=== PATIENT | female | born 1935 | race Caucasian/White ===

== ENCOUNTER 2016-08-03 11:54 | Inpatient (IN) | payer OTHER, MEDICARE ==
[~2016-08-03] VITALS: Ht 162.6 cm; Wt 48.1 kg
[2016-08-03 12:00] VITALS: BP_SYST 137
--- NOTE | 2016-08-03 12:00 | NUR ---
Patient to ER bed 08 to gown for evaluation. Side rails up. Report given to Luly.
--- NOTE | 2016-08-03 12:02 | NUR ---
ER at bedside examining patient.
--- NOTE | 2016-08-03 12:15 | NUR ---
Phleb at bedside for blood draw
[2016-08-03] MEDS ORDERED: PRO40 PO (12:16)
[2016-08-03] MEDS ORDERED: CLOP75TA2 PO (12:16)
[2016-08-03] MEDS ORDERED: POTA-118 PO (12:16)
[2016-08-03] MEDS ORDERED: SERT-131 PO (12:16)
[2016-08-03] MEDS ORDERED: TRAZ300T2 PO (12:16)
[2016-08-03] MEDS ORDERED: MESA0.37 PO (12:16)
[2016-08-03] MEDS ORDERED: FERR-57 PO (12:16)
[2016-08-03] MEDS ORDERED: HYDR-3698 PO (12:16)
[2016-08-03] MEDS ORDERED: SIMV20TA6 PO (12:16)
[2016-08-03] MEDS ORDERED: PRED5TAB PO (12:16)
[2016-08-03] MEDS ORDERED: MEMA28CA PO (12:16)
--- NOTE | 2016-08-03 12:16 | NUR ---
Medication reconciliation completed with information provided by paperwork from [facility] and [facility]. Any prior medication reconciliation on file was reviewed and corrected.
--- NOTE | 2016-08-03 12:28 | NUR ---
Pt lives at [facility]. Brought in by system manager.
--- NOTE | 2016-08-03 12:36 | NUR ---
Patient alert, awake, orientedx2 names and birthdate. cc of difficulty of swallowing and bump ( hard) left side neck. vital sign stable, afebrile. informed caregiver/opticianry teacher of board and care about POC. pt no s/s of distress. mouth is dry and crusty.mouth care done.
[2016-08-03 12:44] LABS: BASOPHILS # (AUTO) 0.1 K/uL (0.0-0.2); BASOPHILS % (AUTO) 0.2 % (0.0-2.0); EOSINOPHILS % (AUTO) 0.1 % (0.0-4.0); HEMATOCRIT 31.5 % (36-48); HEMOGLOBIN 10.3 g/dL (12.0-16.0); LYMPHOCYTES # (AUTO) 0.9 K/uL (1.0-5.5); LYMPHOCYTES % (AUTO) 2.5 % (20.5-51.5); MEAN CORPUSCULAR HEMOGLOBIN 30 pg (27-31); MEAN CORPUSCULAR HGB CONC 33 % (32-36); MEAN CORPUSCULAR VOLUME 92 fL (79.0-98.0); MONOCYTES # (AUTO) 1.1 K/uL (0.0-1.0); MONOCYTES % (AUTO) 2.9 % (1.7-9.3); NEUTROPHILS % (AUTO) 94.3 % (40.0-70.0); PLATELET COUNT (AUTO) 380 K/uL (130-430); RED BLOOD CELL COUNT(AUTO) 3.42 MIL/uL (4.2-6.2); RED CELL DISTRIBUTION WIDTH 13.2 % (9.0-15.0)
[2016-08-03 12:47] LABS: WHITE BLOOD COUNT (AUTO) 37.1 K/uL (4.8-10.8)
[2016-08-03 12:49] LABS: ANION GAP 7 (5-15); CALCIUM 10.2 mg/dL (8.4-11.0); CHLORIDE 111 mmol/L (98-107); CREATININE 0.99 mg/dL (0.55-1.30); GLUCOSE 147 mg/dL (70-99); POTASSIUM 3.8 mmol/L (3.5-5.1); SODIUM SERUM 144 mmol/L (136-145); UREA NITROGEN, BLOOD 25 mg/dL (8-21)
[2016-08-03 12:53] LABS: PROTHROMBIN TIME 11.1 SECS (9.5-12.5)
[2016-08-03 12:54] LABS: ALANINE AMINOTRANSFERASE 15 U/L (12-78); ALBUMIN 2.3 g/dL (3.4-4.8); ASPARTATE AMINOTRANSFERASE 16 U/L (10-37); CREATINE KINASE, TOTAL 90 U/L (26-192); TOTAL BILIRUBIN 0.4 mg/dL (0.0-1.0); TOTAL PROTEIN, SERUM 7.1 g/dL (6.4-8.3)
[2016-08-03] MEDS ORDERED: IOHEXOL 0 ML IV ONE (13:16)
[2016-08-03] MEDS ORDERED: CLINDAMYCIN 600 MG in D5W 50 ML IV ONE (14:15)
[2016-08-03] MEDS ORDERED: cefTRIAXone 1 GM IVPB PREMIX 50 ML IV ONE (14:15)
--- NOTE | 2016-08-03 14:23 | NUR ---
IVPB infusing to rt FA with no s/sx of infiltration at this time. roller staker at bedside.
--- NOTE | 2016-08-03 14:24 | NUR ---
Al from Ultrasound at bedside
--- NOTE | 2016-08-03 15:15 | NUR ---
Admit order to med/ surg status.transferred pt to room 135. bedside report given to BRENDA CRAFT. patient stable condition. belongings check and signed by Phil Williamson ( still [facility] all belongings sent with patient.
--- NOTE | 2016-08-03 15:19 | NUR ---
ADMISSION: The patient, YOSEPH APPIAH, 80 y/o, F admitted by MORENO FORBES DO, was given written information regarding hospital policies, unit procedures and contact lens fitter.
[2016-08-03 15:29] VITALS: BP_SYST 115
[2016-08-03] MEDS ORDERED: ONDANSETRON HCL 4 MG/2 ML VIAL IVP PRN (15:45)
[2016-08-03] MEDS ORDERED: LORazepam 2 MG/ML VIAL IVP PRN (15:45)
[2016-08-03] MEDS ORDERED: MAGNESIUM SULFATE 50 ML IV PRN (15:45)
[2016-08-03] MEDS ORDERED: DOCUSATE SODIUM 100 MG CAPSULE PO PRN (15:45)
[2016-08-03] MEDS ORDERED: POTASSIUM CHLORIDE 10 MEQ TAB.PRT.SR PO PRN (15:45)
[2016-08-03] MEDS ORDERED: ZOLPIDEM TARTRATE 5 MG TABLET PO PRN (15:45)
[2016-08-03] MEDS ORDERED: ACETAMINOPHEN 325 MG TABLET PO PRN (15:45)
[2016-08-03] MEDS ORDERED: MORPHINE 2 MG/ML INJ. SYRINGE IVP PRN (15:45)
--- NOTE | 2016-08-03 15:46 | NUR ---
SURGICAL CONSULT Spoke with Veronica regarding request for consultation with Dr. Robertson ([phone]) for reason: submandibular mass.
[2016-08-03 16:00] VITALS: BP_SYST 115
--- NOTE | 2016-08-03 16:00 | NUR ---
Rounds Patient is awake however, is confused. Bed is close to the nurses station and bed alarm is in place. IV is on the RFA 20g running NS@70ml/hr. Sepsis protocol will be initiated, WBC is 37.1. Large mass over neck noted. Will follow up with surgical consult with Dr. Robertson. Will continue to monitor.
[2016-08-03] MEDS: NACL 0.9% 1,000 ML IV SCH (16:31)
[2016-08-03] MEDS: VANCOMYCIN HCL 750 MG/NS 250 ML IV SCH (17:47)
--- NOTE | 2016-08-03 18:50 | NUR ---
Closing Note Patient is currently resting in bed. Spoke with Dr. Robertson order for MRI of neck was obtained. Blood culture and lactic acid levels were drawn. Patient is currently running Vancomycin IVP. Will give report to the oncoming nurse.
[2016-08-03 20:30] VITALS: BP_SYST 123
--- NOTE | 2016-08-03 20:31 | NUR ---
Initial note A/O x 1, no SOB, no chest pain, no pain, mild anxious. Skin warm to touch, IV at R FA, patent. IVF ongoing. Redness and swelling on neck noted. Wound at coccyx and R hip note. L hand/arm contracted/stiff. Clear lung sounds, active bowel sounds. Like to cover her eyes/face with blanket. Call light within reach, bed at lowest position, bed alarm on, will continue to monitor patient.
[2016-08-03] MEDS: SIMVASTATIN 20 MG TABLET PO SCH (22:02)
[2016-08-03] MEDS: traZODone HCL 50 MG TABLET (DESYREL) PO SCH (22:10)
--- NOTE | 2016-08-03 22:15 | NUR ---
Rounds Sleeping in bed, arousable, medications given with apple sauce. No aspiration. No SOB, no chest pain, denied pain. IVF ongoing. Redness and swelling on neck noted. Call light within reach, bed at lowest position, bed alarm on, will continue to monitor patient.
[2016-08-03 23:54] VITALS: BP_SYST 100
--- NOTE | 2016-08-04 00:10 | NUR ---
Rounds Sleeping in bed. No SOB, no chest pain, denied pain. IVF ongoing. Call light within reach, bed at lowest position, bed alarm on, will continue to monitor patient.
--- NOTE | 2016-08-04 02:11 | NUR ---
Rounds Sleeping in bed. No SOB, no chest pain, no grimacing. IVF ongoing. Call light within reach, bed at lowest position, bed alarm on, will continue to monitor patient.
[2016-08-04 04:04] VITALS: BP_SYST 100
--- NOTE | 2016-08-04 04:15 | NUR ---
Rounds Sleeping in bed. No SOB, no chest pain, no grimacing. Call light within reach, bed at lowest position, bed alarm on, will continue to monitor patient.
[2016-08-04] MEDS: NACL 0.9% 1,000 ML IV SCH (06:39)
--- NOTE | 2016-08-04 06:54 | NUR ---
Closing note Awake in bed, talking to herself. No SOB, no chest pain, denied pain. Call light within reach, bed at lowest position, bed alarm on, will give report to incoming nurse.
[2016-08-04 07:04] LABS: HEMATOCRIT 28.5 % (36-48); HEMOGLOBIN 9.4 g/dL (12.0-16.0); MEAN CORPUSCULAR HEMOGLOBIN 30 pg (27-31); MEAN CORPUSCULAR HGB CONC 33 % (32-36); MEAN CORPUSCULAR VOLUME 92 fL (79.0-98.0); PLATELET COUNT (AUTO) 336 K/uL (130-430); RED BLOOD CELL COUNT(AUTO) 3.12 MIL/uL (4.2-6.2); RED CELL DISTRIBUTION WIDTH 13.2 % (9.0-15.0); WHITE BLOOD COUNT (AUTO) 26.5 K/uL (4.8-10.8)
[2016-08-04 07:15] LABS: ANION GAP 6 (5-15); CALCIUM 9.6 mg/dL (8.4-11.0); CHLORIDE 116 mmol/L (98-107); CREATININE 0.69 mg/dL (0.55-1.30); GLUCOSE 98 mg/dL (70-99); POTASSIUM 3.8 mmol/L (3.5-5.1); SODIUM SERUM 147 mmol/L (136-145); UREA NITROGEN, BLOOD 21 mg/dL (8-21)
--- NOTE | 2016-08-04 07:34 | NUR ---
Opening Note Report received form Rob CRAFT. Patient is in stable condition and is currently awake, resting in bed. IV is on the RFA 20g running NS@70ml/hr. No signs of distress noted. Will continue to monitor.
[2016-08-04 07:49] LABS: BAND % (MANUAL) 0 % (0-6); BASOPHILS % (MANUAL) 0 % (0-2); EOSINOPHILS % (MANUAL) 0 % (0-7); LYMPHOCYTES % (MANUAL) 6 % (20-46); MONOCYTES % (MANUAL) 2 % (0-11)
[2016-08-04 08:05] VITALS: BP_SYST 139
[2016-08-04] MEDS ORDERED: MEMANTINE HCL 7 MG CAP.SPR.24 PO SCH (09:00)
[2016-08-04] MEDS ORDERED: CLOPIDOGREL BISULFATE 75 MG TABLET PO SCH (09:00)
[2016-08-04] MEDS ORDERED: MESALAMINE PO SCH (09:00)
[2016-08-04] MEDS ORDERED: 0.45% NS 500 ML IV ONE (09:00)
--- NOTE | 2016-08-04 09:35 | NUR ---
Spoke with MD Spoke with Dr. Silver and let the MD know of current Na level of 147. MD changed IV fluids to 1/2NS@70.
[2016-08-04] MEDS: SERTRALINE HCL 50 MG TABLET PO SCH (10:04)
[2016-08-04] MEDS: FERROUS SULFATE 325 MG TABLET.DR PO SCH (10:04)
[2016-08-04] MEDS: MEMANTINE HCL 5 MG TABLET PO SCH ×2 (10:04→20:48)
[2016-08-04] MEDS: HEPARIN SODIUM,PORCINE 5000 UNITS/ML VIAL SUBCUT SCH ×2 (10:07→20:49)
--- NOTE | 2016-08-04 10:50 | NUR ---
Rounds Patient is currently resting in bed. Family is at the bedside.
[2016-08-04] MEDS: 0.45% NACL 1,000 ML IV SCH (11:26)
[2016-08-04 12:00] VITALS: BP_SYST 119
--- NOTE | 2016-08-04 12:26 | NUR ---
S.T. SWALLOW EVAL COMPLETED. PT PRESENTS W/ ORAL SWALLOW FUNCTIONAL FOR PUREE AND THIN/THICK LIQUIDS. MOD PHARYNGEAL DYSPHAGIA W/ DELAYED SWALLOW AND COUGHING ON THIN LIQUIDS INDICATING RISK FOR ASPIRATION. REC: PUREE DIET W/ THICKENED LIQUIDS (NECTAR CONSISTENCY) NURSE BRENDA NOTIFIED. G8996 CK G8997 CK G8998 CK NOMS LEVEL 4
--- NOTE | 2016-08-04 12:30 | NUR ---
Rounds Patient is resting in bed. BP pressure is within range. Patient is afebrile. Family is at he bedside. Bed is in low position.
--- NOTE | 2016-08-04 12:40 | NUR ---
CM DC PLANNING: S/W DR. MILLAN IN A.M. WHO IS WANTING TO GET IN TOUCH WITH FAMILY MEMBER REGARDING POC RECOMMENDATIONS. S/W NURSE/BRENDA WHO STATED THERE ARE A LOT OF FAMILY MEMBERS WHO ARE REQUESTING INFORMATION ON TREATMENT/STATUS OF Pt. AND RN/BRENDA HAS ESTABLISHED THAT DTR/ROSA WILL BE THE PRIMARY FAMILY SPOKESPERSON.
--- NOTE | 2016-08-04 14:40 | NUR ---
Rounds Patient had a bowel movement. She was cleaned and wound care was done. Patient tolerated well.
[2016-08-04] MEDS ORDERED: NS IRRIG SOLN 1000 ML IR ONE (15:11)
[2016-08-04] MEDS ORDERED: MIDAZOLAM HCL 5 MG/5 ML VIAL IVP ONE (15:11)
[2016-08-04] MEDS ORDERED: PROPOFOL 200MG/ 20ML VIAL (DIPRIVAN) IV ONE (15:11)
[2016-08-04] MEDS ORDERED: MEPERIDINE HCL/PF 50 MG/ML AMP IM ONE (15:11)
[2016-08-04] MEDS ORDERED: LIDOCAINE/EPI 1% 1:100000 20 ML VIAL INJ ONE (15:11)
[2016-08-04] MEDS ORDERED: LR 1,000 ML IV.SOLN IV ONE (15:11)
[2016-08-04 16:00] VITALS: BP_SYST 101
--- NOTE | 2016-08-04 16:35 | NUR ---
Rounds Patient's daughter Luz is at the bedside and spoke with Dr. Robertson. wants to do an incision and drainage of the neck. Luz stated that all her questions were answered and she signed the consent.
[2016-08-04] MEDS: VANCOMYCIN HCL 750 MG/NS 250 ML IV SCH (17:29)
--- NOTE | 2016-08-04 18:40 | NUR ---
Closing Note Patient is in stable condition. Blood pressure has been within range and has been afebrile throughout the shift. No signs of distress noted. IV is on the RFA running 1/2NS@70 ml/hr. Will give report to the oncoming shift.
[2016-08-04 20:33] VITALS: BP_SYST 93
--- NOTE | 2016-08-04 20:41 | NUR ---
Initial note A/O x 1, no SOB, no chest pain, denied pain. Skin warm to touch, IV at R FA. Wounds at coccyx, and back noted. Some discoloration at R hip and R heel. No edema noted. +2 radial and pedal pulses. L hand/arm contracted. Patient is somehow anxious, but no SOB. Call light within reach, bed at lowest position, bed alarm on, will continue to monitor patient.
[2016-08-04] MEDS: traZODone HCL 50 MG TABLET (DESYREL) PO SCH (20:48)
[2016-08-04] MEDS: SIMVASTATIN 20 MG TABLET PO SCH (20:48)
--- NOTE | 2016-08-04 22:04 | NUR ---
Rounds Patient sleeping now, no SOB, no chest pain, no grimacing. Bed at lowest position, bed alarm on, IVF ongoing. Call light within reach, will continue to monitor patient.
--- NOTE | 2016-08-04 23:47 | NUR ---
Paged Dr. Robertson for orders Spoke with Arminda.
--- NOTE | 2016-08-04 23:56 | NUR ---
TELEPHONE CONSENT OBTAINED MRI checklist reviewed and telephone consent obtained for MRI from pt.'s daughter, Meme Alfaro ([phone]) who denies any questions or concerns about procedure. Telephone consent witnessed with primary nurse, VENANCIO Rivas.
[2016-08-05] VITALS (10 sets, daily range): BP systolic 110–146
--- NOTE | 2016-08-05 00:04 | NUR ---
Rounds Sleeping in bed. No SOB, no chest pain, no grimacing. Repositioned patient. Bed at lowest position, bed alarm on, IVF ongoing. Call light within reach, will continue to monitor patient.
--- NOTE | 2016-08-05 00:30 | NUR ---
Received order from Dr. Robertson for UA via in-and-out cath.
[2016-08-05] MEDS: 0.45% NACL 1,000 ML IV SCH ×2 (01:09→14:51)
--- NOTE | 2016-08-05 01:46 | NUR ---
URINE SENT TO LAB Pt.'s urine sample sent to lab for UA.
[2016-08-05 02:00] LABS: BILIRUBIN,URINE NEGATIVE (NEGATIVE); BLOOD, URINE NEGATIVE (NEGATIVE); CLARITY/URINE CLOUDY (CLEAR); COLOR,URINE YELLOW (YELLOW); GLUCOSE,URINE NEGATIVE (NEGATIVE); KETONES,URINE NEGATIVE (NEGATIVE); LEUKOCYTE ESTERASE ,URINE 1+ (NEGATIVE); NITRITE, URINE NEGATIVE (NEGATIVE); PH,URINE 5.5 (5.0-8.0); PROTEIN URINE NEGATIVE (NEGATIVE); UROBILINOGEN,URINE 0.2 (0.2-1.0)
[2016-08-05 02:04] LABS: BACTERIA,URINE MODERATE /HPF (None Seen); MUCUS,URINE None Seen /LPF (None Seen); RBC,URINE 0-3 /HPF (0-3); URINE AMORPHOUS URATE 2+ /HPF (None Seen); WBC,URINE 50-80 /HPF (0-3)
--- NOTE | 2016-08-05 02:24 | NUR ---
Rounds Sleeping in bed. No SOB, no chest pain, no grimacing. Bed at lowest position, bed alarm on, IVF ongoing. Call light within reach, will continue to monitor patient.
--- NOTE | 2016-08-05 04:08 | NUR ---
Rounds Sleeping in bed. No SOB, no chest pain, no grimacing. Skin warm to touch, repositioned patient Q2H. Bed at lowest position, bed alarm on, call light within reach, will continue to monitor patient.
[2016-08-05 06:42] LABS: EOSINOPHILS # (AUTO) 0.2 K/uL (0.0-0.4)
[2016-08-05 07:01] LABS: HEMOGLOBIN 8.4 g/dL (12.0-16.0)
[2016-08-05 07:03] LABS: ANION GAP 5 (5-15); CALCIUM 9.1 mg/dL (8.4-11.0); CHLORIDE 112 mmol/L (98-107); CREATININE 0.63 mg/dL (0.55-1.30); GLUCOSE 103 mg/dL (70-99); POTASSIUM 3.3 mmol/L (3.5-5.1); SODIUM SERUM 143 mmol/L (136-145); UREA NITROGEN, BLOOD 15 mg/dL (8-21)
[2016-08-05 07:11] LABS: BASOPHILS % (AUTO) 0.2 % (0.0-2.0); EOSINOPHILS % (AUTO) 1.2 % (0.0-4.0); HEMATOCRIT 26.4 % (36-48); LYMPHOCYTES # (AUTO) 1.3 K/uL (1.0-5.5); LYMPHOCYTES % (AUTO) 6.8 % (20.5-51.5); MEAN CORPUSCULAR HEMOGLOBIN 30 pg (27-31); MEAN CORPUSCULAR HGB CONC 32 % (32-36); MEAN CORPUSCULAR VOLUME 93 fL (79.0-98.0); MONOCYTES # (AUTO) 0.6 K/uL (0.0-1.0); MONOCYTES % (AUTO) 2.9 % (1.7-9.3); NEUTROPHILS # (AUTO) 17.7 K/uL (1.8-7.7); NEUTROPHILS % (AUTO) 88.9 % (40.0-70.0); PLATELET COUNT (AUTO) 326 K/uL (130-430); RED BLOOD CELL COUNT(AUTO) 2.85 MIL/uL (4.2-6.2); RED CELL DISTRIBUTION WIDTH 13.3 % (9.0-15.0); WHITE BLOOD COUNT (AUTO) 19.8 K/uL (4.8-10.8)
--- NOTE | 2016-08-05 07:22 | NUR ---
OPENING NOTE REPORT RECEIVED FROM NOC RN. PATIENT IS AWAKE, CONFUSED. LYING IN BED HOLDING A BLANKET TO HER RIGHT CHEEK. SWELLING SUBMANDIBULAR TO LEFT OF FACE AND NECK NOTED. PATIENT UNABLE TO STATE IF SHE IS IN PAIN OR HER NEEDS DUE TO CONFUSION. PATIENT JUST REPEATS THAT SHE WANTS TO GO HOME.
--- NOTE | 2016-08-05 07:38 | NUR ---
Closing note Awake in bed. No SOB, no chest pain, no grimacing. Patient's talking to herself repeatedly. Bed at lowest position, bed alarm on, call light within reach, report given to incoming nurse.
--- NOTE | 2016-08-05 07:55 | NUR ---
Nutrition Update Chuck Scale 10 noted. Pt admitted for Sepsis, Submandibular mass. Diet: Regular diet. BMI: 18.2 kg/m2 RD to follow per nutrition care standards.
--- NOTE | 2016-08-05 09:40 | NUR ---
PATIENT MEDICATED PER ORDERS. DAUGHTERS AT BEDSIDE. PER DAUGHTERS IF PATIENT HAS A CARCINOMA OR CANCER OF ANY KIND THEY ARE NOT GOING TO SEEK TREATMENT. THEY ALSO STATE PATIENT HAS A SIGNED DNR THAT THEY ARE BRINGING TO THE HOSPITAL TODAY. PT SCHEDULED FOR MRI THIS AFTERNOON
[2016-08-05] MEDS: SERTRALINE HCL 50 MG TABLET PO SCH (09:56)
[2016-08-05] MEDS: MEMANTINE HCL 5 MG TABLET PO SCH ×2 (09:56→21:00)
[2016-08-05] MEDS: FERROUS SULFATE 325 MG TABLET.DR PO SCH (09:58)
[2016-08-05] MEDS: HEPARIN SODIUM,PORCINE 5000 UNITS/ML VIAL SUBCUT SCH ×2 (09:58→22:19)
--- NOTE | 2016-08-05 13:20 | NUR ---
MRI Patient for MRI. Ativan given prior to test. vitals taken and recorded.
--- NOTE | 2016-08-05 13:31 | NUR ---
PATIENT RETURNED FROM MRI VIA GURNEY. PER TECH MRI UNABLE TO BE PERFORMED DUE TO PATIENT MOVING TOO MUCH.
--- NOTE | 2016-08-05 14:35 | NUR ---
Wound Evaluation: Wound Consult ordered for Low Chuck Score. Patient evaluated for a low Chuck score of 10. Patient was awake, alert, oriented and received in a Aileen Bed with an IsoFlex FARDIA mattress with low air loss therapy initiated. Patient needs to be turned in bed. Skin is fair. Recommend reposition patient every 2 hours with pillow support. Elevate, off-load and float bilateral heels with pillows. Offload pressure areas with pillows for pressure re-distribution. Perform skin care and monitor skin integrity Q shift. Use moisture barrier cream on moisture susceptible areas QID and PRN for soiling. Maintain patient on a low air-loss mattress. Will continue to follow as a Chuck. Addendum: 08/07/16 at 1018 by Chavez Cortes RN Note written in error, please disregard.
--- NOTE | 2016-08-05 14:48 | NUR ---
PATIENT TAKEN TO OR FOR BIOPSY VIA GURNEY
--- NOTE | 2016-08-05 15:34 | NUR ---
DR FORBES PAGEMadhavi FOR PATIENT MRSA POSITIVE RESULTS
[2016-08-05] MEDS ORDERED: NACL 0.9% 1,000 ML IV SCH (15:36)
[2016-08-05] MEDS ORDERED: ONDANSETRON HCL 4 MG/2 ML VIAL IVP PRN (15:45)
[2016-08-05] MEDS ORDERED: HYDROmorphone 2 MG/ML VIAL IVP PRN (15:45)
[2016-08-05] MEDS ORDERED: HYDROmorphone 1 MG INJ. 1 MG/ML AMPUL IVP PRN (15:45)
--- NOTE | 2016-08-05 16:08 | NUR ---
DR FORBES ORDERED MUPROCIN NASAL FOR MRSA IN NARES.
--- NOTE | 2016-08-05 16:34 | NUR ---
PATIENT RETURNED FROM OR WITH TWO RN'S AT [facility]. REPORT RECEIVED AT BEDSIDE INITIAL FLOOR VITALS 111/64, 85, 965 ON ROOM AIR RR 16 0/10 PAIN. PATIENT IS EASILY AROUSABLE TO VOICE, PUPILS PERRL. FAMILY IS AT BEDSIDE
--- NOTE | 2016-08-05 16:43 | NUR ---
SPOKE WITH PATIENT'S DAUGHTER ABEBE REGARDING ADVANCED DIRECTIVE. INFORMED HER THAT IT IS NOT ACTUALLY A DNR, DAUGHTER THEN STATED THE FAMILY WOULD NOT WANT THEIR MOTHER INTUBATED, WOULD NOT WANT CPR AND WOULD NOT WANT MEDICATIONS GIVEN IN THE EVENT OF A CODE OR ARREST. EXPLAINED TO ABEBE THAT THIS WOULD NEED TO BE CONFIRMED WITH THE MD, DR FORBES AND SIGNED BY HIM TO BE IN EFFECT WHILE FAMILY IS NOT PHYSICALLY PRESENT. VERBALIZED UNDERSTANDING
--- NOTE | 2016-08-05 16:52 | NUR ---
DR FORBES PAGED PT SBP 71/42. RR 14. 96%RA, P 64 PUPILD PINPOINT. PATIENT IS UNAROUSABLE
[2016-08-05] MEDS ORDERED: NALOXONE HCL 0.4 MG/ML AMP (NARCAN) ONE (17:03)
--- NOTE | 2016-08-05 17:05 | NUR ---
PATIENT HAS STARTED TO WAKE TO NOXIOUS AND PAINFUL STIMULI. WHEN ASKED IF SHE'D LIKE TO SLEEP PATIENT NODDED "YES." PUPILS 3, REACTIVE. RR 16, ON 2LPM O2 PATIENT IS 100%
--- NOTE | 2016-08-05 17:06 | NUR ---
PER DR FORBES GIVE 0.4MG NARCAN, 1L BOLUS OF NS, REASSESS IF PATIENT DOES NOT WAKE UP SEND TO ICU. CONSULT DR OLIVEROS FOR CRITICAL CARE
[2016-08-05] MEDS: VANCOMYCIN HCL 750 MG/NS 250 ML IV SCH (17:33)
--- NOTE | 2016-08-05 17:34 | NUR ---
SBP 133/86 PATIENT REMAINS OBTUNDED AND DIFFICULT TO ROUSE. OPENS EYES TO PAINFUL STIMULI. RR STEADY, HR 65-74
--- NOTE | 2016-08-05 17:43 | NUR ---
PULM CONSULT CONSULT FOR Dr. Guzman was called, LONA Farrell RE Critical Care Patient
--- NOTE | 2016-08-05 17:49 | NUR ---
DR OLIVEROS RETURNED PAGE. STAT ABG AND FLUMAZENIL
[2016-08-05] MEDS ORDERED: FLUMAZENIL 0.1 MG/ML IVP ONE ×2 (18:00→18:05)
[2016-08-05 18:16] LABS: ABG TOTAL HEMOGLOBIN 8.4 G/dL (12.0-18.0); BLOOD GAS BASE EXCESS 2.5 mmol/L (-3.0-3.0); BLOOD GAS COHb% 0.6 % (0.5-1.5); BLOOD GAS PH 7.475 (7.350-7.450); BLOOD O2Hb% 97.6 % (94.0-97.0)
[2016-08-05 18:17] LABS: BLOOD GAS HHB 1.3 % (0.0-6.0)
[2016-08-05] MEDS ORDERED: NALOXONE HCL 0.4 MG/ML AMP (NARCAN) IVP ONE (18:30)
--- NOTE | 2016-08-05 18:39 | NUR ---
sbp 140's patient is mumbling incoherently, non responsive verbally. eyes open spontaneously. baseline is confused and disoriented but pleasant. patient is not at baseline yet. dr vo requests patient to icu for close monitoring. per family patient is dnr. confirmed with dr vo
--- NOTE | 2016-08-05 19:40 | NUR ---
INITIAL NOTE Patient resting on the bed with eyes closed. No acute distress. Respiration even and unlabored. OT=129/70 at this time. Skin warm and dry to touch. IV intact to RFA, no redness, no swelling, no drainage, IVF infusing well. On contact isolation for MRSA of nares. Family at bedside. Discussed the safety issue, use call light when need help, and plan of care, verbally understanding. Patient is going to transfer to ICU. Per family patient will be DNR and checked the chart, Dr. Silver already signed the paper. Safety measure maintained. Bed in low position, side rails up. Call light within reached. Will continue to monitor.
--- NOTE | 2016-08-05 20:55 | NUR ---
ROUND Patient remain unresponsive. No acute distress. Skin warm and dry to touch. Noted BP not stable, SBP dropped to 80s and up to 140s. Family at bedside. Safety measure maintained. Call light within reached. Bed in low position, side rails up. Will continue to monitor.
[2016-08-05] MEDS: SIMVASTATIN 20 MG TABLET PO SCH (21:00)
--- NOTE | 2016-08-05 22:00 | NUR ---
PATIENT TRANSFERRED TO ICU BED 5 Patient BP=82/36, P=44, still unresponsive at this time. Transferred to ICU bed 5, report given at bedside to VENANCIO Weir.
--- NOTE | 2016-08-05 22:00 | NUR ---
PM ASSESSMENT PT A/OX1, OBTUNDED, AFEBRILE. PT ON NC @2L, NO SOB OR DISTRESS, LUNG SOUNDS CLEAR BILAT. SB ON THE MONITOR. SACRAL, RT HIP, BACK, AND RT HEEL WOUNDS, DRESSINGS CLEAN DRY AND INTACT. NO C/O PAIN AT THIS TIME. IVF 1/2 NS@70ML/HR. IV SITE ON RT FA 20G, INTACT AND PATENT. SAFETY PRECAUTIONS IN PLACE, WILL CONTINUE TO MONITOR.
[2016-08-05] MEDS: MUPIROCIN 2% TOPICAL OINTMENT 22 GM TP SCH (22:15)
[2016-08-06] VITALS (16 sets, daily range): BP systolic 84–138
--- NOTE | 2016-08-06 01:00 | NUR ---
NEURO PT RESPONDS BACK TO QUESTIONS. REORIENTED TO SURROUNDINGS. WILL CONTINUE TO MONITOR.
[2016-08-06 06:31] LABS: BASOPHILS # (AUTO) 0.1 K/uL (0.0-0.2); BASOPHILS % (AUTO) 0.5 % (0.0-2.0); HEMATOCRIT 28.6 % (36-48); HEMOGLOBIN 9.2 g/dL (12.0-16.0); LYMPHOCYTES # (AUTO) 0.8 K/uL (1.0-5.5); LYMPHOCYTES % (AUTO) 5.4 % (20.5-51.5); MEAN CORPUSCULAR HEMOGLOBIN 30 pg (27-31); MEAN CORPUSCULAR HGB CONC 32 % (32-36); MEAN CORPUSCULAR VOLUME 92 fL (79.0-98.0); MONOCYTES # (AUTO) 0.4 K/uL (0.0-1.0); MONOCYTES % (AUTO) 2.9 % (1.7-9.3); NEUTROPHILS % (AUTO) 91.2 % (40.0-70.0); PLATELET COUNT (AUTO) 319 K/uL (130-430); RED BLOOD CELL COUNT(AUTO) 3.11 MIL/uL (4.2-6.2); RED CELL DISTRIBUTION WIDTH 13.3 % (9.0-15.0); WHITE BLOOD COUNT (AUTO) 15.3 K/uL (4.8-10.8)
[2016-08-06 06:58] LABS: ANION GAP 7 (5-15); CALCIUM 9.1 mg/dL (8.4-11.0); CHLORIDE 106 mmol/L (98-107); GLUCOSE 99 mg/dL (70-99); POTASSIUM 3.9 mmol/L (3.5-5.1); SODIUM SERUM 141 mmol/L (136-145); UREA NITROGEN, BLOOD 10 mg/dL (8-21)
--- NOTE | 2016-08-06 07:15 | NUR ---
RECEIVED PATIENT ON BED ASLEEP EASILY AROUSED BY VERBAL STIMULI.BREATHING EVEN AND UNLABORED.NO SIGNS AND SYMPTOMS OF ACUTE DISTRESS.IVF INFUSING WELL;NO SIGNS AND SYMPTOMS OF INFILTRATION.DRESSING TO LEFT SUBMANDIBULAR S/P I AND D DRY CLEAN AND INTACT;NO SIGNS AND SYMPTOMS OF ACTIVE BLEEDING.SAFETY AND FALL PRECAUTIONS IN PLACE.CALL LIGHT WITHIN REACH
--- NOTE | 2016-08-06 07:34 | NUR ---
CLOSING ALL NEEDS MET. ENDORSED CARE TO DAY NURSE VENANCIO VALENTIN. REPORT GIVEN AT BEDSIDE.
--- NOTE | 2016-08-06 08:00 | NUR ---
DR. MILLAN CAME AND EXAMINED THE PATIENT
--- NOTE | 2016-08-06 08:30 | NUR ---
PATIENT FULLY AWAKE;SERVED BREAKFAST;ABLE TO CONSUME 50%;TOLERATED FOOD WELL
--- NOTE | 2016-08-06 09:00 | NUR ---
PATIENT ASLEEP;BP DROPPED DOWN TO 84/48 BUT GOES UP WHEN AWAKE
[2016-08-06] MEDS: MEMANTINE HCL 5 MG TABLET PO SCH ×2 (09:02→21:19)
[2016-08-06] MEDS: FERROUS SULFATE 325 MG TABLET.DR PO SCH (09:02)
[2016-08-06] MEDS: MUPIROCIN 2% TOPICAL OINTMENT 22 GM TP SCH ×2 (09:02→21:19)
[2016-08-06] MEDS: SERTRALINE HCL 50 MG TABLET PO SCH (09:02)
[2016-08-06] MEDS: HEPARIN SODIUM,PORCINE 5000 UNITS/ML VIAL SUBCUT SCH ×2 (09:06→21:18)
--- NOTE | 2016-08-06 09:19 | NUR ---
DAUGHTERS CAME TO VISIT
--- NOTE | 2016-08-06 12:30 | NUR ---
LUNCH SERVED;FAMILY MEMBERS FED THE PATIENT;WITH POOR APPETITE
--- NOTE | 2016-08-06 13:30 | NUR ---
PATIENT TRANSFERRED TO [facility] 105 A ACCOMPANIED BY 2 DAUGHTERS AND SON .ALERT,AWAKE,CONFUSED.NO ACUTE DISTRESS.DRESSING TO LEFT SUB MANDIBULAR SURGICAL SITE INTACT;NO SIGNS AND SYMPTOMS OF ACTIVE BLEEDING.BEDSIDE REPORT GIVEN TO LILIAN (VENANCIO).
--- NOTE | 2016-08-06 13:49 | NUR ---
Received patient from ICU nurse, patient is stable, vital signs stable, patient's family members are at bedside, call chapman left next to patient's hand, bed in lowest position, bed alarm on, side rails up, close to nursing station, fall precaution in place, will continue to monitor
--- NOTE | 2016-08-06 14:00 | NUR ---
Patient keeps trying to pull off dressing on face, reorienting patient not to pull at dressing, patient is also pulling at wires to take off tele monitors, reoriented patient.
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
--- NOTE | 2016-08-06 15:45 | NUR ---
RN ROUNDS PATIENT IS CURRENTLY RESTING IN BED, FAMILY MEMBERS AT BEDSIDE, PATIENT SHOWS NO SIGNS OF DISTRESS, BREATHING IS EVEN AND UNLABORED, NO OTHER NEEDS AT THIS TIME, WILL CONTINUE TO MONITOR.
--- NOTE | 2016-08-06 16:13 | NUR ---
DISCHARGE PLANNING DC order for SNF placement. Called and spoke with patient daughter Meme Alfaro [phone] who is agreeable with discharge plan to SNF and is agreeable [facility] [place] [facility] that recommended. Faxed SNF referral to [facility] and [facility] [phone]. Will follow up. Addendum: 08/06/16 at 1651 by Ashlyn KENNEDY spoke with Kevin in admitting at [facility] patient accepted assigned to room 111A RN to report [phone], bed available in AM. Any ambulance can be arranged. Prepared transportation packet. DCP will follow up in AM.
--- NOTE | 2016-08-06 17:54 | NUR ---
RN ROUNDS PATIENT IS CURRENTLY RESTING IN BED, PATIENT'S FAMILY IS AT BEDSIDE FEEDING PATIENT, PATIENT HAS NO SIGNS OF DISTRESS OR DISCOMFORT, WILL CONTINUE TO MONITOR PATIENT, FALL AND ISOLATION PRECAUTIONS IN PLACE.
[2016-08-06] MEDS: VANCOMYCIN HCL 750 MG/NS 250 ML IV SCH (18:04)
[2016-08-06] MEDS: 0.45% NACL 1,000 ML IV SCH ×2 (18:05→19:27)
--- NOTE | 2016-08-06 18:37 | NUR ---
CLOSING NOTE PATIENT IS CURRENTLY RESTING IN BED, NO SIGNS OF DISTRESS NOTED, BREATHING IS EVEN AND UNLABORED, FAMILY MEMBERS ARE AT BEDSIDE, PATIENT IS IN STABLE CONDITION, ALL NEEDS MET, WILL ENDORSE PATIENT TO RF MANAGER NURSE, CALL MENDOZA LEFT NEXT TO PATIENT'S HAND, BED ALARM ON, SIDE RAILS UP, FALL PRECAUTION IN PLACE.
--- NOTE | 2016-08-06 19:30 | NUR ---
INITIAL NOTE Patient resting on the bed. Respiration even and unlabored. No acute distress. Skin warm and dry to touch. IV intact to RFA, no redness, no swelling, no drainage. On 1/2NS at 70ml/hr, infusing well. Right wrist soft restraint in placed. No skin breakdown note on the site at this time. Able to move fingers without difficulty. Dressing intact to left side of the neck, no bleeding noted. Safety measure maintained. Bed in low position, side rails up. Call light within reached. Will continue to monitor.
[2016-08-06] MEDS: SIMVASTATIN 20 MG TABLET PO SCH (21:19)
--- NOTE | 2016-08-06 21:20 | NUR ---
ROUND Patient resting on the bed. No acute distress. Right wrist soft restraint in placed and released 10 mins for circulation and skin checked. Safety measure maintained. Call light within reached. Bed in low position, side rails up. Continue to monitor.
--- NOTE | 2016-08-06 22:30 | NUR ---
IV RE-INSERTION: Noted infiltrated on the IV site. Removed IV with minimum bleeding, IV tip intact. Restarted on LFA. Successful after two attempts. Resumed current IVF of 1/2NS and regulated @ 70ml/hr. Will observe for any signs of infiltration.
[2016-08-07] VITALS: BP_SYST 128
--- NOTE | 2016-08-07 00:05 | NUR ---
ROUND Patient resting on the bed with eyes closed. Respiration even and unlabored. No acute distress. Right wrist soft restraint released, circulation checked. Continue on IVF, infusing well. Safety measure maintained. Call light within reached. Will continue to monitor.
--- NOTE | 2016-08-07 02:15 | NUR ---
ROUND Patient sleeping comfortable. Respiration even and unlabored. No acute distress. Right wrist soft restraint released, circulation checked. Continue on IVF, infusing well. Safety measure maintained. Call light within reached. Bed in low position, side rails up. Continue to monitor.
[2016-08-07 04:00] VITALS: BP_SYST 131
--- NOTE | 2016-08-07 06:57 | NUR ---
CLOSING NOTE Patient resting on the bed. Respiration even and unlabored. No acute distress. Skin warm and dry to touch. IV intact to RFA, no redness, no swelling, no drainage. On 1/2NS at 70ml/hr, infusing well. Right wrist soft restraint in placed. No skin breakdown note on the site at this time. Able to move fingers without difficulty. Released Q2hrs for circulation and skin checked. Dressing intact to left side of the neck, no bleeding noted. All needs met. Hourly rounding during shift. Safety measure maintained. Bed in low position, side rails up. Call light within reached. Will endorse to morning shift nurse.
[2016-08-07 07:39] LABS: ANION GAP 3 (5-15); CALCIUM 8.7 mg/dL (8.4-11.0); CHLORIDE 101 mmol/L (98-107); CREATININE 0.57 mg/dL (0.55-1.30); GLUCOSE 83 mg/dL (70-99); POTASSIUM 3.3 mmol/L (3.5-5.1); SODIUM SERUM 135 mmol/L (136-145); UREA NITROGEN, BLOOD 7 mg/dL (8-21)
[2016-08-07 07:43] LABS: BASOPHILS % (AUTO) 0.2 % (0.0-2.0); EOSINOPHILS # (AUTO) 0.1 K/uL (0.0-0.4); EOSINOPHILS % (AUTO) 0.8 % (0.0-4.0); HEMATOCRIT 28.4 % (36-48); HEMOGLOBIN 9.2 g/dL (12.0-16.0); LYMPHOCYTES # (AUTO) 0.9 K/uL (1.0-5.5); MEAN CORPUSCULAR HEMOGLOBIN 30 pg (27-31); MEAN CORPUSCULAR HGB CONC 33 % (32-36); MEAN CORPUSCULAR VOLUME 92 fL (79.0-98.0); MONOCYTES # (AUTO) 0.3 K/uL (0.0-1.0); MONOCYTES % (AUTO) 2.9 % (1.7-9.3); NEUTROPHILS # (AUTO) 10.3 K/uL (1.8-7.7); NEUTROPHILS % (AUTO) 88.1 % (40.0-70.0); PLATELET COUNT (AUTO) 362 K/uL (130-430); RED BLOOD CELL COUNT(AUTO) 3.09 MIL/uL (4.2-6.2); RED CELL DISTRIBUTION WIDTH 13.1 % (9.0-15.0); WHITE BLOOD COUNT (AUTO) 11.6 K/uL (4.8-10.8)
--- NOTE | 2016-08-07 08:02 | NUR ---
Initial notes: Patient on bed awake, alert and confused. Keep on saying "I want to go home". Stable. I.V. access patent. Submandibular dressing in placed. Safety measures in placed. Call light placed within reach. .
[2016-08-07 08:05] VITALS: BP_SYST 142
[2016-08-07] MEDS: HEPARIN SODIUM,PORCINE 5000 UNITS/ML VIAL SUBCUT SCH (09:19)
[2016-08-07] MEDS: SERTRALINE HCL 50 MG TABLET PO SCH (09:20)
[2016-08-07] MEDS: FERROUS SULFATE 325 MG TABLET.DR PO SCH (09:20)
[2016-08-07] MEDS: MEMANTINE HCL 5 MG TABLET PO SCH (09:20)
--- NOTE | 2016-08-07 09:30 | NUR ---
Lu rounds: Dr. Silver seen the patient with daughters, Meme and Trixie, at bed side. Dr. Silver explained to the patient and both daughters about transferring to [facility] SNF the benefits and both daughters agreed with him.
--- NOTE | 2016-08-07 09:43 | NUR ---
Wound dressing: changed wound dressing. yellow drainage still present on the submandibular area. Sacral area dry, scab forming and placed dressing.
--- NOTE | 2016-08-07 09:46 | NUR ---
rounds: repositioned patient. daughter's at bedside. no distress noted.
[2016-08-07] MEDS: MUPIROCIN 2% TOPICAL OINTMENT 22 GM TP SCH (09:56)
--- NOTE | 2016-08-07 10:17 | NUR ---
DISCHARGE PLANNING DC order to SNF. MATA Carl met with family regarding discharge to SNF. Called [facility] [phone] spoke with Kevin arranged BLS transport crop picker 12noon. Placed transportation packet in nurses station.
[2016-08-07 10:51] VITALS: BP_SYST 142
[2016-08-07 11:33] VITALS: BP_SYST 126
--- NOTE | 2016-08-07 12:22 | NUR ---
Discharge: Report given to Michelle at [facility]. Transfer packet with Transfer Orders and Medication Reconciliation form given to EMT with report. Exitcare provided. [facility] ID band removed, replaced with ID band with pt's name and . IV catheter in placed for antibiotic treatment. All belongings sent with patient. Patient left floor via gurney escorted by EMT in no distress.
--- NOTE | 2016-08-07 15:10 | NUR ---
WOUND EVALUATION: Wound Consult received from Dr. Silver. Thank you, Dr. Silver, for the consult. Patient received in a Aileen Bed with an Isoflex FARIDA mattress low air loss therapy, awake, alert, and confused. Patient is unable to turn independently. Chuck Score is a 13. Past Medical History: Alzheimer's dementia, diabetes mellitus, coronary artery disease, cervical mass, colitis, GERD, depression, dyslipidemia, osteoporosis, and dementia. Recent Labs: WBC 11.6, RBC 3.09, hemoglobin 9.2, hematocrit 28.4, potassium 3.3, BUN 3, creatinine 0.57, PTT 23.9. Intrinsic factors that delay wound healing: Diabetes mellitus, and coronary artery disease. Extrinsic factors that delay wound healing: Decreased mobility. Microbiology: Blood culture 2 in progress. MRSA screen results positive. Urine culture negative for uropathogens. Wound Assessment: 1) left neck: Abscess, present on admission. Status post recent incision and drainage. Wound bed is 90% yellow tissue, 10% pink tissue. No odor, no drainage. Measures 3.4 cm x 1.5 cm x 1.9 cm. Recommend: Cleanse wound with normal saline. Place moisture barrier cream onto jonh-wound. Put Venelex ointment into wound bed. Pack wound with plain packing strips soaked in normal saline. Cover with foam dressing. Perform wound care daily, and as needed for dressing soiling or dislodgement. 2) sacrococcygeal area: Non-intact scan over scar tissue with a small area of brown eschar, present on admission. Site has 95% pink scar tissue, 5% brown eschar. No odor, no drainage. Dry, stable. Measures 3.0 cm x 1.5 cm. 3) right buttock: Erythema and non-intact scan from IAD, present on admission. Site has 100% pink tissue. No odor, no drainage. Measures 0.5 cm x 0.4 cm. Recommend: Cleanse areas with normal saline. Pat dry. Cover areas with moisture barrier cream. Cover with foam dressings. Perform sites care daily, and as needed for dressing soiling or dislodgment. 4) right hip: Unstageable pressure ulcer, present on admission. Wound bed has 100% dark red eschar. No odor, no drainage. Periwound has erythema. Measures 6.1 cm x 3.0 cm. Recommend: Cleanse wound with normal saline. Place moisture barrier cream onto jonh-wound. Put Venelex ointment into wound bed. Cover with foam dressing. Perform wound care daily, and as needed for dressing soiling or dislodgement. 5) left medial heel: Suspected deep tissue injury, present on admission. Black discoloration present. No odor, no drainage. Measures 2.1 cm x 4.3 cm. Recommend: Cover site with a foam dressing. Elevate, offload and flow bilateral heels with pillows at all times. Continue to monitor site every shift. 6) right anterior forearm: Ecchymosis, present on admission. No odor, no drainage. 7) left trunk, from inferior rib cage to superior pelvic rim: Blanchable redness, present on admission. 8) Right lower back: Small area non-intact skin, present on admission. No odor, no drainage. Dry, stable.. Recommend: No dressings needed. Continue to monitor sites every shift. Patient may be discharged today. Recommend continue same treatment at transfer facility. Also recommend: Reposition patient [id number] only every 2 hours with pillow support and off-load pressure areas with pillows for pressure re-distribution. Offload, elevate and float bilateral heels with pillows. Perform skin care and monitor skin integrity Q shift. Use moisture barrier cream on buttocks and other moisture susceptible areas QID and as needed for soiling. Maintain patient on a low air-loss mattress.
[2016-08-07] MEDS ORDERED: BALSAM PERU/CASTOR OIL 60 GM OINT...G. TP PRN (17:30)
[2016-08-08] MEDS ORDERED: BALSAM PERU/CASTOR OIL 60 GM OINT...G. TP SCH (09:00)
== END 2016-08-07 12:22 | DRG 853 ==
LOC: SED 11:54 → SMU 14:58 → OBSVTOIN 08-04 21:24 → SIC 08-05 21:57 → STU 08-06 14:13
PROVIDERS: ADMIT General Practice; ATTEND General Practice
PROC: 0J950ZZ Drainage of Left Neck Subcutaneous Tissue and Fascia, Open Approach (ICD-10-PCS; 2016-08-05)
PROC: 0JB50ZX Excision of Left Neck Subcutaneous Tissue and Fascia, Open Approach, Diagnostic (ICD-10-PCS; principal; 2016-08-05 11:45)
DX: A41.9 Sepsis, unspecified organism (principal); G93.41 Metabolic encephalopathy; E44.0 Moderate protein-calorie malnutrition; K12.2 Cellulitis and abscess of mouth; Z68.1 Body mass index [BMI] 19.9 or less, adult; E11.9 Type 2 diabetes mellitus without complications; E78.5 Hyperlipidemia, unspecified; F02.80 Dementia in other diseases classified elsewhere, unspecified severity, without behavioral disturbance, psychotic disturbance, mood disturbance, and anxiety; F32.9 Major depressive disorder, single episode, unspecified; I25.10 Atherosclerotic heart disease of native coronary artery without angina pectoris; Z66 Do not resuscitate; R26.81 Unsteadiness on feet; K21.9 Gastro-esophageal reflux disease without esophagitis; M81.0 Age-related osteoporosis without current pathological fracture; M19.90 Unspecified osteoarthritis, unspecified site; I10 Essential (primary) hypertension; R22.1 Localized swelling, mass and lump, neck; T40.695A Adverse effect of other narcotics, initial encounter; G30.1 Alzheimer's disease with late onset; T42.4X5A Adverse effect of benzodiazepines, initial encounter; Z79.899 Other long term (current) drug therapy; Z87.891 Personal history of nicotine dependence; Z91.041 Radiographic dye allergy status; Z74.01 Bed confinement status; Z79.82 Long term (current) use of aspirin; Z79.02 Long term (current) use of antithrombotics/antiplatelets; Y92.89 Other specified places as the place of occurrence of the external cause
CPT/HCPCS: 36415; 36600; 71010; 76536-TC; 80048; 80053; 81000-TC; 82550-TC; 82803-TC; 83605; 83735-TC; 83880; 84484; 85007; 85025; 85027; 85610-TC; 85730-TC; 87040-TC; 87070; 87070-TC; 87081; 87086; 87186-TC; 88305; 92610-GN; 93005; 96365; 99285; G0378; J0696; J1644; J2060; J2175; J2250; J2310; J2704; J3370; J3490; J7030; J7040; J7120; Q9967